=== PATIENT | female | born 1965 | race Asian ===

== ENCOUNTER 2016-08-21 09:40 | Outpatient (CLI) | payer OTHER | END 2016-08-21 19:16 | disposition home or self-care (01) | LOC: RAD 09:40 | DX: M54.5 Low back pain (principal) ==

== ENCOUNTER 2016-09-12 08:13 | Outpatient (CLI) | payer OTHER | END 2016-09-12 11:00 | disposition home or self-care (01) | LOC: CT 08:13 | DX: N28.1 Cyst of kidney, acquired (principal); M54.17 Radiculopathy, lumbosacral region | CPT/HCPCS: 36415; 82565; 84520; Q9963 ==

== ENCOUNTER 2016-10-10 08:01 | Day surgery (SDC) | payer OTHER | END 2016-10-10 11:00 | disposition home or self-care (01) | LOC: OR 08:01 | PROC: 0DJD8ZZ Inspection of Lower Intestinal Tract, Via Natural or Artificial Opening Endoscopic (ICD-10-PCS; principal; 2016-10-10) | DX: Z12.11 Encounter for screening for malignant neoplasm of colon (principal) | CPT/HCPCS: J3010 ==

== ENCOUNTER 2016-11-07 02:15 | Inpatient (IN) | payer OTHER ==
[~2016-11-07] VITALS: Ht 162.6 cm; Wt 130.0 kg
[2016-11-07] VITALS (10 sets, daily range): BP systolic 81–99; BP diastolic 51–62; TEMP 98.7–99.2; Ht 162.6 cm; Wt 130.0 kg
[2016-11-07 04:40] LABS: PLATELET COUNT 555 K/uL (152-353)
[2016-11-07 09:27] LABS: POTASSIUM 3.6 mmol/L (3.6-5.2); SODIUM 134 mmol/L (136-145)
[2016-11-07] MEDS ORDERED: SIMV20TA2 PO (10:30)
[2016-11-07] MEDS ORDERED: AMLO2.5T PO (10:33)
[2016-11-07] MEDS ORDERED: HYDR25TA60 PO (10:34)
[2016-11-07] MEDS ORDERED: STOOL SOFTNR100 MG OR (10:35)
[2016-11-07] MEDS ORDERED: OXYC5TAB53 PO (10:38)
[2016-11-07] MEDS ORDERED: IBUPROFEN200 M1 PO ×2 (10:41→10:42)
[2016-11-07] MEDS ORDERED: BENICAR40 MG PO (10:42)
[2016-11-07] MEDS ORDERED: XARELTO15 MG OR (10:42)
[2016-11-07] MEDS ORDERED: CELEXA20 MG PO (10:43)
[2016-11-07] MEDS ORDERED: ONDA4TAB3 PO (10:44)
[2016-11-07 19:50] LABS: POTASSIUM 3.5 mmol/L (3.6-5.2)
[2016-11-08] VITALS (23 sets, daily range): BP systolic 77–116; BP diastolic 41–75; TEMP 97.8–99.1
[2016-11-08 06:17] LABS: POTASSIUM 3.7 mmol/L (3.6-5.2)
[2016-11-08 06:25] LABS: PLATELET COUNT 415 K/uL (152-353)
[2016-11-09] VITALS (22 sets, daily range): BP systolic 99–129; BP diastolic 64–83; TEMP 97.5–99.8
[2016-11-09 06:36] LABS: PLATELET COUNT 366 K/uL (152-353)
[2016-11-09 06:57] LABS: POTASSIUM 4.3 mmol/L (3.6-5.2)
[2016-11-10] VITALS (11 sets, daily range): BP systolic 102–133; BP diastolic 60–80; TEMP 98.2–99.7
[2016-11-10 06:28] LABS: PLATELET COUNT 365 K/uL (152-353)
[2016-11-10 06:38] LABS: POTASSIUM 3.4 mmol/L (3.6-5.2)
[2016-11-11] VITALS (11 sets, daily range): BP systolic 110–139; BP diastolic 70–84; TEMP 99.5
[2016-11-11 06:45] LABS: PLATELET COUNT 376 K/uL (152-353)
[2016-11-12] VITALS (7 sets, daily range): BP systolic 110–137; BP diastolic 74–89; TEMP 99–99.8
[2016-11-12 09:03] LABS: PLATELET COUNT 318 K/uL (152-353)
[2016-11-12 09:13] LABS: POTASSIUM 3.6 mmol/L (3.6-5.2)
[2016-11-13] VITALS (7 sets, daily range): BP systolic 121–141; BP diastolic 74–83; TEMP 98.3–99.6
[2016-11-13 06:50] LABS: POTASSIUM 3.4 mmol/L (3.6-5.2)
[2016-11-13 08:23] LABS: PLATELET COUNT 304 K/uL (152-353)
[2016-11-14 03:56] LABS: PLATELET COUNT 248 K/uL (152-353)
[2016-11-14 04:00] VITALS: BP 124/77; TEMP 99.4
[2016-11-14 04:24] LABS: POTASSIUM 3.6 mmol/L (3.6-5.2)
[2016-11-14 08:00] VITALS: BP 141/72; TEMP 99.5
== END 2016-11-14 13:10 | disposition home or self-care (01) | DRG 394 ==
LOC: MED/SURG 02:15 → ICU 17:40 → MED/SURG 11-13 14:00
PROVIDERS: ADMIT Family Medicine
PROC: 0D9670Z Drainage of Stomach with Drainage Device, Via Natural or Artificial Opening (ICD-10-PCS; principal; 2016-11-07)
DX: K91.3 Postprocedural intestinal obstruction (principal); N39.0 Urinary tract infection, site not specified; N17.8 Other acute kidney failure; R06.09 Other forms of dyspnea; E86.1 Hypovolemia; R11.2 Nausea with vomiting, unspecified; F32.89 Other specified depressive episodes; I10 Essential (primary) hypertension; D64.89 Other specified anemias; B96.1 Klebsiella pneumoniae [K. pneumoniae] as the cause of diseases classified elsewhere; B96.20 Unspecified Escherichia coli [E. coli] as the cause of diseases classified elsewhere; D72.828 Other elevated white blood cell count; Y83.8 Other surgical procedures as the cause of abnormal reaction of the patient, or of later complication, without mention of misadventure at the time of the procedure; Y82.8 Other medical devices associated with adverse incidents; Y92.89 Other specified places as the place of occurrence of the external cause; Z85.41 Personal history of malignant neoplasm of cervix uteri
CPT/HCPCS: 36415; 36430; 36571; 36591; 36600; 80053; 81000; 82550; 82805; 83605; 83735; 83880; 84100; 84134; 84443; 84478; 84484; 85007; 85027; 85379; 86850; 86900; 86901; 86922; 87070; 87077; 87086; 87088; 87186; 87205; 93005; 94640; 94664; 94668; 94760; 96365; 96366; 96367; 96372; C1751; J0696; J1450; J1644; J1885; J2405; J2765; J3475; J3480; J3490; P9016

== ENCOUNTER 2017-02-16 10:24 | Outpatient (CLI) | payer OTHER ==
[~2017-02-16 10:24] MED LIST: AMLO2.5T PO; BENICAR40 MG PO; CELEXA20 MG PO; HYDR25TA60 PO; IBUPROFEN200 M1 PO; ONDA4TAB3 PO; OXYC5TAB53 PO; SIMV20TA2 PO; STOOL SOFTNR100 MG OR; XARELTO15 MG OR
[2017-02-16 10:43] LABS: POTASSIUM 3.4 mmol/L (3.6-5.2)
[2017-02-16 11:18] LABS: PLATELET COUNT 233 K/uL (152-353)
== END 2017-02-16 18:56 | disposition home or self-care (01) ==
LOC: LABW 10:24
PROVIDERS: Obstetrics & Gynecology Gynecologic Oncology
DX: T83.84XA Pain due to genitourinary prosthetic devices, implants and grafts, initial encounter (principal)
CPT/HCPCS: 36415; 80048; 85027

== ENCOUNTER 2018-03-29 09:50 | Outpatient (CLI) | payer OTHER | END 2018-03-29 20:22 | disposition home or self-care (01) | LOC: MAMMO 09:50 | DX: Z12.31 Encounter for screening mammogram for malignant neoplasm of breast (principal) ==

== ENCOUNTER 2018-05-03 09:13 | Outpatient (CLI) | payer OTHER | END 2018-05-03 19:40 | disposition home or self-care (01) | LOC: MAMMO 09:13 | DX: R92.8 Other abnormal and inconclusive findings on diagnostic imaging of breast (principal) ==

== ENCOUNTER 2018-09-24 10:33 | Outpatient (CLI) | payer OTHER | END 2018-09-24 20:41 | disposition home or self-care (01) | LOC: MAMMO 10:33 | DX: N64.52 Nipple discharge (principal) ==

== ENCOUNTER 2019-08-18 18:29 | Outpatient (CLI) | payer OTHER | END 2019-08-18 19:01 | disposition home or self-care (01) | LOC: LAB 18:29 | DX: R60.0 Localized edema (principal) | CPT/HCPCS: 83880 ==

== ENCOUNTER 2019-09-15 14:26 | Outpatient (CLI) | payer OTHER | END 2019-09-15 21:41 | disposition home or self-care (01) | LOC: US 14:26 | DX: R60.0 Localized edema (principal) ==

== ENCOUNTER 2019-12-30 11:45 | Outpatient (CLI) | payer OTHER | END 2019-12-30 19:04 | disposition home or self-care (01) | LOC: RAD 11:45 | DX: M25.552 Pain in left hip (principal) ==

== ENCOUNTER 2020-02-07 10:55 | Outpatient (CLI) | payer OTHER | END 2020-02-07 22:37 | disposition home or self-care (01) | LOC: MAMMO 10:55 | PROVIDERS: ATTEND Family Medicine | DX: Z12.31 Encounter for screening mammogram for malignant neoplasm of breast (principal) ==

== ENCOUNTER 2020-04-26 09:19 | Outpatient (CLI) | payer OTHER ==
[2020-04-26 09:42] LABS: PLATELET COUNT 244 K/uL (152-353)
[2020-04-26 10:03] LABS: POTASSIUM 3.9 mmol/L (3.6-5.2)
== END 2020-04-26 20:06 | disposition home or self-care (01) ==
LOC: LABW 09:19
PROVIDERS: ATTEND Nurse Practitioner Family
DX: R10.12 Left upper quadrant pain (principal)
CPT/HCPCS: 36415; 80053; 82150; 83690; 85027

== ENCOUNTER 2020-04-27 14:13 | Outpatient (CLI) | payer OTHER ==
[2020-04-27 14:37] LABS: POTASSIUM 3.6 mmol/L (3.6-5.2)
== END 2020-04-27 19:38 | disposition home or self-care (01) ==
LOC: LAB 14:13
PROVIDERS: ATTEND Family Medicine
DX: R74.01 Elevation of levels of liver transaminase levels (principal)
CPT/HCPCS: 80053

== ENCOUNTER 2020-05-16 08:39 | Outpatient (CLI) | payer OTHER | END 2020-05-16 19:30 | disposition home or self-care (01) | LOC: US 08:39 | PROVIDERS: ATTEND Nurse Practitioner Family | DX: R10.12 Left upper quadrant pain (principal) ==

== ENCOUNTER 2020-07-14 08:46 | Outpatient (CLI) | payer OTHER | END 2020-07-14 23:29 | disposition home or self-care (01) | LOC: LAB 08:46 | PROVIDERS: ATTEND Specialist | DX: K81.0 Acute cholecystitis (principal); C7B.8 Other secondary neuroendocrine tumors | CPT/HCPCS: 83497 ==

== ENCOUNTER 2020-11-12 08:55 | Outpatient (CLI) | payer OTHER | END 2020-11-12 21:43 | disposition home or self-care (01) | LOC: US 08:55 | PROVIDERS: ATTEND Internal Medicine Gastroenterology | DX: K76.0 Fatty (change of) liver, not elsewhere classified (principal) ==

== ENCOUNTER 2020-11-27 09:20 | Outpatient (CLI) | payer OTHER ==
[2020-11-27 10:14] LABS: PLATELET COUNT 225 K/uL (152-353)
[2020-11-27 10:49] LABS: POTASSIUM 3.6 mmol/L (3.6-5.2)
== END 2020-11-27 20:33 | disposition home or self-care (01) ==
LOC: LABW 09:20
PROVIDERS: ATTEND Internal Medicine Gastroenterology
DX: K76.0 Fatty (change of) liver, not elsewhere classified (principal)
CPT/HCPCS: 36415; 80053; 82103; 82172; 82247; 82390; 82465; 82525; 82728; 82947; 82977; 83010; 83516; 83540; 83550; 83883; 84450; 84460; 84466; 84478; 85027; 85610; 86038

== ENCOUNTER 2021-02-08 08:48 | Outpatient (CLI) | payer OTHER | END 2021-02-08 20:13 | disposition home or self-care (01) | LOC: MAMMO 08:48 | PROVIDERS: ATTEND Family Medicine | DX: Z12.31 Encounter for screening mammogram for malignant neoplasm of breast (principal) ==

== ENCOUNTER 2021-02-19 09:07 | Outpatient (CLI) | payer OTHER | END 2021-02-19 19:03 | disposition home or self-care (01) | LOC: US 09:07 | PROVIDERS: ATTEND Family Medicine | DX: M79.661 Pain in right lower leg (principal) ==

== ENCOUNTER 2021-03-11 10:07 | Outpatient (CLI) | payer OTHER ==
[2021-03-11 11:56] LABS: PLATELET COUNT 225 K/uL (152-353)
== END 2021-03-11 19:00 | disposition home or self-care (01) ==
LOC: LABW 10:07
PROVIDERS: ATTEND Internal Medicine Gastroenterology
DX: K76.0 Fatty (change of) liver, not elsewhere classified (principal)
CPT/HCPCS: 36415; 80053; 85027

== ENCOUNTER 2021-07-22 08:20 | Outpatient (CLI) | payer OTHER | END 2021-07-22 18:54 | disposition home or self-care (01) | LOC: CT 08:20 | PROVIDERS: ATTEND Specialist | DX: K81.0 Acute cholecystitis (principal); C7B.8 Other secondary neuroendocrine tumors; Z51.89 Encounter for other specified aftercare | CPT/HCPCS: 36415; 82565; 84520; Q9963 ==

== ENCOUNTER 2021-09-09 12:46 | Outpatient (CLI) | payer OTHER | END 2021-09-09 18:49 | disposition home or self-care (01) | LOC: US 12:46 | PROVIDERS: ATTEND Nurse Practitioner Family | DX: E04.9 Nontoxic goiter, unspecified (principal) ==

== ENCOUNTER 2022-04-02 09:32 | Outpatient (CLI) | payer OTHER ==
[2022-04-02 09:52] LABS: PLATELET COUNT 226 K/uL (152-353)
[2022-04-02 10:03] LABS: POTASSIUM 3.8 mmol/L (3.6-5.2); SODIUM 141 mmol/L (136-145)
== END 2022-04-02 19:32 | disposition home or self-care (01) ==
LOC: LABW 09:32
PROVIDERS: ATTEND Internal Medicine Gastroenterology
DX: K76.0 Fatty (change of) liver, not elsewhere classified (principal)
CPT/HCPCS: 36415; 80053; 85027; 85610

== ENCOUNTER 2022-05-27 15:01 | Outpatient (CLI) | payer OTHER ==
[2022-05-27 15:24] LABS: POTASSIUM 3.5 mmol/L (3.6-5.2)
== END 2022-05-27 21:25 | disposition home or self-care (01) ==
LOC: LABW 15:01
PROVIDERS: ATTEND Internal Medicine Cardiovascular Disease
DX: I10 Essential (primary) hypertension (principal); E78.49 Other hyperlipidemia
CPT/HCPCS: 36415; 80048; 80061

== ENCOUNTER 2022-12-01 09:20 | Outpatient (CLI) | payer OTHER ==
[2022-12-01 09:52] LABS: POTASSIUM 3.2 mmol/L (3.6-5.2)
== END 2022-12-01 19:05 | disposition home or self-care (01) ==
LOC: LABW 09:20
PROVIDERS: ATTEND Internal Medicine Cardiovascular Disease
DX: I10 Essential (primary) hypertension (principal); E11.9 Type 2 diabetes mellitus without complications; E78.49 Other hyperlipidemia
CPT/HCPCS: 36415; 80048; 80061; 83036